=== PATIENT | female | born 1970 | race Caucasian/White ===

== ENCOUNTER 2019-02-13 16:28 | Emergency (ER) | payer BC ==
--- OUTSIDE RECORDS SUMMARY | 2019-02-13 16:30 | XMS REPORT | Clinical Summary ---
:1970 Author Organization [facility] Address [address] [place] [address] Care Team Providers Name Role Phone Asked, No Pcp Primary Care Provider Unavailable Allergies Active Allergy Reactions Severity Noted Date Comments Codeine Itching 10/03/2017 Medications Medication Sig Dispensed Refills Start Date End Date Status budesonide (PULMICORT) Take 0.5 mg by 0 04/15/2017 Active 0.5 mg/2 mL nebulizer nebulization 2 solution (two) times a day. SYMBICORT 160-4.5 Inhale 2 puffs 2 0 03/25/2017 Active mcg/actuation inhaler (two) times a day. levothyroxine Take 100 mcg by 0 04/27/2017 Active (SYNTHROID, LEVOXYL) mouth daily. 100 mcg tablet montelukast (SINGULAIR) Take 10 mg by 0 Active 10 mg tablet mouth nightly. LEVOCETIRIZINE Take 5 mg by 0 Active DIHYDROCHLORIDE mouth daily. (LEVOCETIRIZINE ORAL) saline nasal (NEILMED) Inhale 1 packet 2 0 Active packet rinse kit (two) times a day. albuterol (PROAIR HFA) ProAir HFA 90 0 Active 90 mcg/actuation mcg/actuation inhaler aerosol inhaler methylPREDNISolone 0 10/06/2018 Active (MEDROL DOSEPAK) 4 mg tablet meloxicam (MOBIC) 15 mg Take 1 tablet (15 30 tablet 0 03/31/2018 tablet mg total) by 8 mouth daily for 30 days. Active Problems Problem Noted Date Esophageal dysphagia 10/22/2018 Acquired foot deformity, right 10/08/2017 Asthma Hypothyroidism Encounters Date Type Specialty Care Team Description 01/01/2019 Telephone Gastroenterology Joseph Garcia MA 12/25/2018 Hospital Encounter Radiology Cora Douglas A., MD unspecified type 11/13/2018 Orders Only Gastroenterology Madai Mccord Dysphagia, RN unspecified type (Primary Dx) 11/10/2018 Surgery Gastroenterology Cora Douglas MOTILITY Meera PINTO MD ESOPHAGUS, USING MANOMETRY 11/10/2018 Hospital Encounter Gastroenterology Cora Douglas MD 10/31/2018 Telephone Gastroenterology Jennifer Santacruz MA 10/31/2018 Orders Only Gastroenterology Jennifer Santacruz Christina, MA unspecified type (Primary Dx) 10/30/2018 Lab Lab Cora Douglas MD 10/30/2018 Documentation Gastroenterology Cora Douglas MD 10/22/2018 Office Visit Gastroenterology Cora Douglas MD dysphagia (Primary Dx) 05/20/2018 Orders Only Orthopedic Surgery Jaida Nicholas, Acquired foot MA deformity, right (Primary Dx) 03/31/2018 Office Visit Orthopedic Surgery Joni Curtis II, Acquired foot deformity, right (Primary Dx); Acute pain of left knee; Acute internal derangement of left knee after 02/12/2018 Family History Medical History Relation Name Comments Crohn's disease Brother Armond Siu Diabetes Father No Known Problems Mother Relation Name Status Comments Brother Aromnd Siu Father Alive Mother Alive Social History Tobacco Use Types Packs/Day Years Used Date Never Smoker Smokeless Tobacco: Never Used Alcohol Use Drinks/Week oz/Week Comments Yes social Sex Assigned at Date Recorded Not on file Job Start Date Occupation Industry Not on file Not on file Not on file Travel History Travel Start Travel End No recent travel history available. Last Filed Vital Signs Vital Sign Reading Time Taken Blood Pressure 110/66 11/10/2018 7:52 AM [employer]ORTGAGE COLLECTOR Pulse 76 11/10/2018 7:52 AM [employer]GAGE [employer] Temperature 36.4 C (97.6 F) 11/10/2018 7:55 AM MORTGAGE COLLECTOR Respiratory Rate - - Oxygen Saturation 97% 11/10/2018 7:52 AM MORTGAGE COL[employer]OR Inhaled Oxygen Concentration - - Weight 118 kg (261 lb) 10/22/2018 7:53 AM MORTGAGE COL[employer]OR Height 182.9 cm (6') 10/22/2018 7:53 AM MORTGAGE COLLECTOR Body Mass Index 35.4 10/22/2018 7:53 AM MORTGAGE COLLECTOR Plan of Treatment Health Maintenance Due Date Last Done Comments CERVICAL CANCER SCREENING 1990 INFLUENZA VACCINE 05/14/2019 Procedures Procedure Name Priority Date/Time Associated Diagnosis Comments FL MODIFIED BARIUM Routine 12/25/2018 1:53 PM Dysphagia, Results for this SWALLOW CDT unspecified type procedure are in the results section. MOTILITY STUDY, 11/10/2018 8:30 AM Dysphagia, ESOPHAGUS, USING MORTGAGE COLLECTOR idiopathic MANOMETRY Special Needs DR NARANJO SURGICAL PATHOLOGY Routine 10/30/2018 4:51 PM Results for this REQUEST M[employer]GAGE [employer]OR procedure are in the results section. XR KNEE 1 OR 2 VW Routine 03/31/2018 5:37 PM Acute pain of left Results for this LEFT CDT knee procedure are in the results section. XR KNEE AP STANDING Routine 03/31/2018 5:37 PM Acute pain of left Results for this BILATERAL CDT knee procedure are in the results section. XR FOOT 3+ VW RIGHT Routine 03/31/2018 5:37 PM Acquired foot Results for this CDT deformity, right procedure are in the results section. after 02/12/2018 Results FL Modified Barium Swallow (12/25/2018 1:53 PM CDT) Narrative Performed At EXAMINATION:[place] MODIFIED BARIUM SWALLOW [facility] CLINICAL HISTORY:R13.10 Dysphagiaunspecified, Esophageal dysphagia COMPARISON:None. Fluoroscopy time: 0.5 minutes Spot Images: None Dose: 1.73 mGy FINDINGS: The patient swallowed varying consistencies of barium under direct lateral fluoroscopic evaluation. The study was performed in conjunction with speech pathology. IMPRESSION: Normal study. The patient swallowed each consistency without evidence of laryngeal penetration or aspiration. Please refer to Speech Pathology report for further details. [facility]-[id number] Procedure Note Interface, Radiology Results Incoming - 12/25/2018 2:27 PM CDT EXAMINATION: FL MODIFIED BARIUM SWALLOW CLINICAL HISTORY: R13.10 Dysphagia unspecified, Esophageal dysphagia COMPARISON: None. Fluoroscopy time: 0.5 minutes Spot Images: None Dose: 1.73 mGy FINDINGS: The patient swallowed varying consistencies of barium under direct lateral fluoroscopic evaluation. The study was performed in conjunction with speech pathology. IMPRESSION: Normal study. The patient swallowed each consistency without evidence of laryngeal penetration or aspiration. Please refer to Speech Pathology report for further details. [facility]-[id number] Performing Organization Address City/State/Zipcode Phone Number [facility] [address] [place] [address] Surgical pathology request (10/30/2018 4:51 PM MORTGAGE COLLECTOR) [facility] DEPARTMENT OF PATHOLOGY AND GENOMIC MEDICINE Surgical pathology report See link below for PDF [facility] DEPARTMENT OF Lab Report PATHOLOGY AND GENOMIC MEDICINE Result status This is Final Report [facility] DEPARTMENT OF for [id number] PATHOLOGY AND GENOMIC MEDICINE Performing Organization Address City/State/Zipcode Phone Number [facility] DEPARTMENT OF PATHOLOGY AND [address] [place] [address] GENOMIC MEDICINE XR Knee 1 Or 2 Vw Left (03/31/2018 5:37 PM CDT) Narrative Performed At Bilateral weightbearing images of the knees reveals no evidence of acute [facility] fracture or dislocation. Medial and lateral joint spaces are well preserved. Bones well mineralized. No significant joint space narrowing noted. Lateral and merchant views reveals preservation of the patellofemoral joint space. The patella is noted to track well within the trochlea. Performing Organization Address City/[facility]/Zipcode Phone Number [facility] [address] [place] [address] XR Knee Ap Standing Bilateral (03/31/2018 5:37 PM CDT) Narrative Performed At Bilateral weightbearing images of the knees reveals no evidence of acute [facility] fracture or dislocation. Medial and lateral joint spaces are well preserved. Bones well mineralized. No significant joint space narrowing noted. Lateral and merchant views reveals preservation of the patellofemoral joint space. The patella is noted to track well within the trochlea. Performing Organization Address City/State/Zipcode Phone Number [facility] [address] [place] [address] XR Foot 3+ Vw Right (03/31/2018 5:37 PM CDT) Narrative Performed At Three-view images of the right foot reveals evidence of a 5 screw triple [facility] arthrodesis construct. The foot appears well aligned. Neutral talus first metatarsal alignment. Performing Organization Address City/State/Zipcode Phone Number [facility] [address] [place] [address] after 02/12/2018 Insurance Payer Benefit Plan / Group Subscriber ID Type Phone Address BCBS BCBS CHOICE PPO/FEDERAL EMPL PPO xxxxxxxxxxxx PPO Guarantor Name Account Type Relation to Date of Phone Billing Address Patient Lynda Means Personal/Famil Self 1970 [address] (Home) [facility] [phone] [facility] ([place]) [place] [id number] Advance Directives Patient has advance care planning documents, and code status on file. For more information, please contact:Jagdeep Woo[address] [place] [address] Code Status Date Activated Date Inactivated Comments Full Code 10/08/2017 2:04 PM 10/09/2017 6:03 PM Code Status decision reached by: Patient
[2019-02-13] MEDS ORDERED: METHYLPREDNISOLONE 125 MG INJ ONE (17:39)
--- NOTE | 2019-02-13 18:21 | ER ---
Nurse's Notes [facility] Name: Lynda Means Age: 48 yrs Sex: Female : 1970 Arrival Date: 02/13/2019 Time: 16:29 Bed 14 Private MD: Diagnosis: Dermatitis, unspecified;Failure of outpt therapy Presentation: 02/13 16:36 Presenting complaint: Patient states: exposed to poison benton 2 weeks ago and got a sv prescription for cream but today noticed she has a spot near her right eye. Transition of care: patient was not received from another setting of care. Onset of symptoms was February 13, 2019. Care prior to arrival: None. 16:36 Method Of Arrival: Ambulatory sv 16:36 Acuity: BENNY 3 sv 16:36 Acuity: BENNY 4 sv 17:00 Risk Assessment: Do you want to hurt yourself or someone else? Patient reports no ph desire to harm self or others. Initial Sepsis Screen: Does the patient meet any 2 criteria? No. Patient's initial sepsis screen is negative. Does the patient have a suspected source of infection? No. Patient's initial sepsis screen is negative. Historical: - Allergies: 16:37 No Known Allergies; sv - PMHx: 16:37 None; sv - PSHx: 16:37 feet; sv - Immunization history:: Adult Immunizations unknown. - Family history:: not pertinent. - Social history:: Smoking status: Patient/guardian denies using tobacco. - Ebola Screening: : No symptoms or risks identified at this time. - Hospitalizations: : No recent hospitalization is reported. Screenin:00 Abuse screen: Denies threats or abuse. Nutritional screening: No deficits noted. jb4 Tuberculosis screening: No symptoms or risk factors identified. Fall Risk IV access (20 points). Total Smith Fall Scale indicates No Risk (0-24 pts). Assessment: 17:00 General: Appears in no apparent distress. comfortable, well groomed, Behavior is calm, ph cooperative, appropriate for age, Denies fever, feeling ill. Pain: Denies pain. Neuro: Level of Consciousness is awake, alert, obeys commands, Oriented to person, place, time, situation. Cardiovascular: Capillary refill < 3 seconds in bilateral fingers Patient's skin is warm and dry. Respiratory: Airway is patent Respiratory effort is even, unlabored, Respiratory pattern is regular, symmetrical, Denies shortness of breath. GI: No signs and/or symptoms were reported involving the gastrointestinal system. Derm: Skin is healthy with good turgor, Skin is pink, warm \T\ dry. Rash noted that is itchy, red, raised, on right eye, chest, right arm and left arm. Musculoskeletal: Circulation, motion, and sensation intact. Range of motion: intact in all extremities. 18:00 Reassessment: Patient appears in no apparent distress at this time. Patient and/or ph family updated on plan of care and expected duration. Pain level reassessed. Patient is alert, oriented x 3, equal unlabored respirations, skin warm/dry/pink. 19:10 Reassessment: Patient appears in no apparent distress at this time. Patient and/or ph family updated on plan of care and expected duration. Pain level reassessed. Patient is alert, oriented x 3, equal unlabored respirations, skin warm/dry/pink. Hospitalist at bedside, pt d/c home. 19:26 Reassessment: Dr. Jacobo decided to discharge pt home from ED prior to admission to the jb4 unit. Pt left ED ambulatory with steady gate. IV dc'ed. no s/s of distress noted. Vital Signs: 16:37 BP 130 / 82; Pulse 98; Resp 18; Temp 98; Pulse Ox 96% ; Weight 122.47 kg; Height 6 ft. sv 0 in. (182.88 cm); Pain 0/10; 19:26 BP 129 / 95; Pulse 78; Resp 16; Pulse Ox 97% on R/A; jb4 16:37 Body Mass Index 36.62 (122.47 kg, 182.88 cm) sv ED Course: 16:29 Patient arrived in ED. as 16:36 Triage completed. sv 16:37 Arm band placed on. sv 16:43 Verónica Rogel, DREW is Primary Nurse. ph 16:46 David Chapa MD is Attending Physician. rn 17:00 Patient has correct armband on for positive identification. Bed in low position. Call ph light in reach. Side rails up X 1. 17:30 No provider procedures requiring assistance completed. Inserted saline lock: 22 gauge ph in right antecubital area, using aseptic technique. 18:20 Ruben Jacobo MD is Hospitalizing Provider. rn 19:30 IV discontinued, intact, bleeding controlled. jb4 Administered Medications: 17:36 Drug: SOLU-Medrol 125 mg Route: IVP; Site: right antecubital; ph 18:10 Follow up: Response: No adverse reaction ph Outcome: 18:20 Decision to Hospitalize by Provider. rn 19:19 Admitted to Med/surg Other But Dr Jacobo came to see pt and she was discharge prior to jb4 being taken to floor. 19:19 Condition: good 19:19 Discharge instructions given to patient, Instructed on discharge instructions, follow up and referral plans. medication usage, Demonstrated understanding of instructions, Prescriptions given X 2. 19:30 Patient left the ED. jb4 Signatures: Clau Roque RN RN sv Martinez, Amelia as Nieto, Roman, MD MD rn Hall, Patricia, RN RN Dustin Jeffries RN RN jb4 Corrections: (The following items were deleted from the chart) 16:38 16:36 Acuity: BENNY 4 sv
--- NOTE | 2019-02-13 18:21 | EDPHYS ---
Physician Documentation [facility] Name: Lynda Means Age: 48 yrs Sex: Female : 1970 Arrival Date: 02/13/2019 Time: 16:29 Bed 14 Private MD: ED Physician David Chapa HPI: 02/13 18:02 This 48 yrs old Female presents to ER via Ambulatory with complaints of rn Poison Sarah. 18:02 The patient's rash thought to be caused by Dermatitis. The rash is located on the body rn diffusely. The rash can be described as crusted, erythematous, vesicular. Onset: The symptoms/episode began/occurred 3 week(s) ago. Severity of symptoms: At their worst the symptoms were moderate in the emergency department the symptoms are unchanged. The patient has experienced similar episodes in the past. Reports diffuse rash, has been dealing with chronic dermatitis, has seen her machinist supervisor several times, has had multiple rounds of IM steroids and oral meds, no improvement, seems to be spreading, now involving face, her machinist supervisor Dr. Vargas called ahead and requested admission for IV steroids. No eye complaints or vision changes.. Historical: - Allergies: 16:37 No Known Allergies; sv - PMHx: 16:37 None; sv - PSHx: 16:37 feet; sv - Immunization history:: Adult Immunizations unknown. - Family history:: not pertinent. - Social history:: Smoking status: Patient/guardian denies using tobacco. - Ebola Screening: : No symptoms or risks identified at this time. - Hospitalizations: : No recent hospitalization is reported. ROS: 18:02 Constitutional: Negative for fever, chills, and weight loss, Eyes: Negative for injury, rn pain, redness, and discharge, Cardiovascular: Negative for chest pain, palpitations, and edema, Respiratory: Negative for shortness of breath, cough, wheezing, and pleuritic chest pain, Abdomen/GI: Negative for abdominal pain, nausea, vomiting, diarrhea, and constipation, MS/Extremity: Negative for injury and deformity, Skin: Diffuse erythematous rash Neuro: Negative for headache, weakness, numbness, tingling, and seizure. Exam: 18:02 Constitutional: This is a well developed, well nourished patient who is awake, alert, rn and in no acute distress. Head/Face: Normocephalic, atraumatic. Eyes: + right forehead and upper eyelid erythematous vesicular lesions, no corneal involvement. Skin: Warm, dry, multiple areas or erythematous pustular and dry lesions, some confluent lesions on trunk, no bullae. Vital Signs: 16:37 BP 130 / 82; Pulse 98; Resp 18; Temp 98; Pulse Ox 96% ; Weight 122.47 kg; Height 6 ft. sv 0 in. (182.88 cm); Pain 0/10; 19:26 BP 129 / 95; Pulse 78; Resp 16; Pulse Ox 97% on R/A; jb4 16:37 Body Mass Index 36.62 (122.47 kg, 182.88 cm) sv MDM: 16:47 Patient medically screened. rn 18:02 Differential diagnosis: allergic reaction, dermatitis, ocular shingles. Data reviewed: rn vital signs, nurses notes, and as a result, I will admit patient. Counseling: I had a detailed discussion with the patient and/or guardian regarding: the historical points, exam findings, and any diagnostic results supporting the discharge/admit diagnosis, the need for further work-up and treatment in the hospital. ED course: Admitted to Dr. Jacobo per Dr. Elizabeth's recommendation, IV steroids given for failure outpt therapy. 02/13 17:12 Order name: IV Start; Complete Time: 17:36 rn Administered Medications: 17:36 Drug: SOLU-Medrol 125 mg Route: IVP; Site: right antecubital; ph 18:10 Follow up: Response: No adverse reaction ph Disposition: 02/13/19 18:20 Hospitalization ordered by Ruben Jacobo for Observation. Preliminary diagnosis are Dermatitis, unspecified, Failure of outpt therapy. - Bed requested for Telemetry/MedSurg (observation). - Status is Observation. jb4 - Condition is Stable. - Problem is an ongoing problem. - Symptoms are unchanged. UTI on Admission? No Signatures: Clau Roque RN RN David Chapa MD MD rn Hall, Patricia, RN RN Dustin Jeffries RN RN jb4 Amanda Puga RN RN df Corrections: (The following items were deleted from the chart) 18:57 18:20 Hospitalization Ordered by Ruben Jacobo MD for Observation. Preliminary diagnosis df is Dermatitis, unspecified; Failure of outpt therapy. Bed requested for Telemetry/MedSurg (observation). Status is Observation. Condition is Stable. Problem is an ongoing problem. Symptoms are unchanged. UTI on Admission? No. rn 19:30 18:57 02/13/2019 18:20 Hospitalization Ordered by Ruben Jacobo MD for Observation. jb4 Preliminary diagnosis is Dermatitis, unspecified; Failure of outpt therapy. Bed requested for Telemetry/MedSurg (observation). Status is Observation. Condition is Stable. Problem is an ongoing problem. Symptoms are unchanged. UTI on Admission? No. df
--- NOTE | 2019-02-13 19:12 | P.CNS ---
Date of Consult: 02/13/19 Chief Complaint: dermatitis History of Present Illness: Pt is a 48 yo F w PMHx of asthma, seasonal eczema, allergies who comes in with worsening poison IV exposure. She called her cmm inspector and he recommended IV steroids. Pts symptoms are constant, moderate. In the ER she received 125mg IV of solu medrol. Hemodynamically stable. I spoke with Dr. Racquel lau for Dr. Vargas. She recommended increased duration of steroid taper and DC home w close f/up w Dr. Vargas next week. Informed Dr. Agarwal in ER. Patient understands plan of care. She is to return to ER for worsening condition. Allergies No Known Allergies Allergy (Unverified 02/22/13 08:49) Home Medications: Betamethasone/Propylene Glyc [Betamethasone Dp Aug 0.05% Crm] 50 gm TP BID #1 tube 02/13/19 predniSONE [Prednisone] 20 mg PO SEECOM #28 tablet 02/13/19 - Past Medical/Surgical History Diabetic: No -: asthma -: eczema -: seasonal allergies -: b/l foot surgery x4 - Family History Mother Medical History: Diabetes - Social History Smoking Status: Never smoker Alcohol use: No Review of Systems 10-point ROS is otherwise unremarkable Integumentary: As per HPI Physical Examination General: Alert, In no apparent distress, Oriented x3 HEENT: Atraumatic, PERRLA, Mucous membr. moist/pink, EOMI, Sclerae nonicteric Neck: Supple, 2+ carotid pulse no bruit, No LAD, Without JVD or thyroid abnormality Respiratory: Clear to auscultation bilaterally, Normal air movement Cardiovascular: Regular rate/rhythm, Normal S1 S2 Gastrointestinal: Normal bowel sounds, Soft and benign, Non-distended, No tenderness Musculoskeletal: No tenderness Integumentary: Other (poison iv rash on left arm, minimal rash on right eyebrow , left foot and right flank) Neurological: Normal gait, Normal speech, Normal tone, Normal affect Lymphatics: No axilla or inguinal lymphadenopathy - Problems (1) Poison benton dermatitis Current Visit: Yes Status: Acute Conclusions/Impression: DC home w extended steroid taper and stronger topical steroid cream hydroxizine prn for itching f/up w Dr. Vargas on Saturday Return to ER for worsening condition
== END 2019-02-13 19:23 | disposition home or self-care (01) ==
LOC: ER 16:28 → UNDOADMOB 18:35 → ERHOLD 18:35 → ER 19:23 → UNDODISOB 19:23
DX: L23.7 Allergic contact dermatitis due to plants, except food (principal); J45.909 Unspecified asthma, uncomplicated; J30.2 Other seasonal allergic rhinitis
CPT/HCPCS: 96374; 99285; G0378; J2930